=== PATIENT | male | born 1985 | race African-American/Black ===

== ENCOUNTER 2020-12-11 19:08 | Emergency (ER) | payer MEDICAID ==
[~2020-12-11] VITALS: Ht 170.2 cm; Wt 86.0 kg
[2020-12-11 20:07] VITALS: BP 103/85
== END 2020-12-11 20:30 | disposition left against medical advice (07) ==
LOC: ER 20:09
DX: Z53.21 Procedure and treatment not carried out due to patient leaving prior to being seen by health care provider (principal)